=== PATIENT | male | born 1950 | race Caucasian/White ===

== ENCOUNTER 2017-08-25 19:48 | Inpatient (IN) | payer MEDICARE ==
[~2017-08-25] VITALS: Ht 180.3 cm; Wt 105.7 kg
[~2017-08-25 19:48] MED LIST: ACTOS15 MG PO; ALT5 PO; ASA81EC PO; CARVEDILOL25 MG PO; CLONAZEPAM1 MG PO; DOXYCYCLINE HY100 MG PO; ENALAPRIL MALEA20 MG PO; FLAGYL500 MG PO; FLAX SEED OIL1000 MG PO; GLIPIZIDE10 MG PO; INSU100V3 SQ; LEVP SQ; LIPITOR20 MG PO; LISINOPRIL10 MG PO; LOPRESSOR25 MG PO; METFORMIN HCL1000 MG PO; NIFEDIPINE ER30 M1 PO; ONGLYZA5 MG PO; OXCARBAZEPINE150 MG PO; PREDNISONE20 MG PO; PROTONIX40 MG/ML PO; SODIUM BICARBO650 MG PO; TERAZOSIN HCL1 MG PO; VIBRAMYCIN100 MG PO; VITAMIN B-121000 MCG PO; VITAMIN D-32000 UNIT PO; VYTORIN 10-201 EACH PO
[2017-08-25] MEDS ORDERED: ALBUTEROL/IPRATROPIUM 3 ML NEB NEB ONE (20:45)
--- NOTE | 2017-08-25 21:00 | Diagnostic Imaging Report ---
EXAMINATION: CHEST 2 VIEWS 08/25/2017 8:10 PM COMPARISON: None INDICATION: Shortness of breath DISCUSSION: LINES: None. LUNGS: The lung volumes are low. There are diffuse perihilar opacities and basilar subsegmental atelectasis. PLEURA: No pleural effusion or pneumothorax. HEART AND MEDIASTINUM: The cardiomediastinal silhouette is enlarged. BONES AND SOFT TISSUES: No acute osseous lesion. The soft tissues are normal. IMPRESSION: Cardiomegaly with perihilar opacities, suspicious for interstitial pulmonary edema. Low lung volumes with basilar atelectasis. Prakash Davis MD Signed by: Dr. Prakash Davis M.D. on 08/25/2017 8:56 PM
[2017-08-25 21:04] LABS: BASOPHILS % 0.3 % (0.0-1.0); EOSINOPHILS # (AUTO) 0.1 (0.0-0.4); EOSINOPHILS % 1.8 % (0.0-6.0); HEMATOCRIT 27.8 % (38.2-49.6); HEMOGLOBIN 9.1 g/dL (14.0-18.0); LYMPHOCYTES # (AUTO) 0.8 (1.0-3.2); LYMPHOCYTES % 20.3 % (18.0-39.1); MEAN CORPUSCULAR HEMOGLOBIN 27.7 pg (28-32); MEAN CORPUSCULAR HGB CONC 32.7 g/dL (31-35); MEAN CORPUSCULAR VOLUME 84.8 fL (81-99); MONOCYTES # (AUTO) 0.4 (0.2-0.8); MONOCYTES % 10.3 % (4.4-11.3); NEUTROPHILS # (AUTO) 2.7 (2.1-6.9); NEUTROPHILS % 66.8 % (38.7-80.0); PLATELET COUNT 141 x10e3/uL (140-360); RED BLOOD COUNT 3.28 x10e6/uL (4.3-5.7); RED CELL DISTRIBUTION WIDTH 15.7 % (11.7-14.4)
[2017-08-25 21:24] LABS: ALBUMIN 2.9 g/dL (3.5-5.0); ALBUMIN/GLOBULIN RATIO 0.7 (0.8-2.0); ANION GAP 19.3 mmol/L (8-16); CREATININE, SERUM 6.37 mg/dL (0.72-1.25); POTASSIUM 4.3 mmol/L (3.5-5.1)
[2017-08-25 21:26] LABS: CALCIUM 5.8 mg/dL (8.4-10.2)
[2017-08-25 21:35] LABS: CREATINE KINASE MB 5.2 ng/mL (0.00-5.00)
[2017-08-25] MEDS ORDERED: CALCIUM GLUCONATE 10% INJ 13.95 MEQ in SODIUM CHLORIDE 0.9% 100 ML 100 ML IV ONE (22:30)
[2017-08-25] MEDS ORDERED: CALCIUM GLUCONATE 10% INJ 0.465 MEQ/ML VIAL ONE ×2 (22:41→22:45)
[2017-08-25] MEDS ORDERED: SODIUM CHLORIDE 0.9% 50ML 50 ML ONE (22:42)
[2017-08-25] MEDS ORDERED: FUROSEMIDE INJ 10 MG/ML 10 ML VIAL IV ONE (22:45)
[2017-08-25] MEDS ORDERED: FUROSEMIDE INJ 10 MG/ML 2 ML VIAL ONE (23:01)
[2017-08-25] MEDS ORDERED: FUROSEMIDE INJ 10 MG/ML 4 ML VIAL ONE (23:01)
[2017-08-26] MEDS ORDERED: DEXTROSE 50% SYRINGE 50 ML IV PRN
[2017-08-26] MEDS ORDERED: ASPIRIN 81 MG CHEW TAB PO ONE
[2017-08-26 04:57] LABS: BASOPHILS % 0.2 % (0.0-1.0); EOSINOPHILS # (AUTO) 0.1 (0.0-0.4); HEMATOCRIT 28.8 % (38.2-49.6); HEMOGLOBIN 9.3 g/dL (14.0-18.0); LYMPHOCYTES % 18.8 % (18.0-39.1); MEAN CORPUSCULAR HEMOGLOBIN 27.6 pg (28-32); MEAN CORPUSCULAR HGB CONC 32.3 g/dL (31-35); MEAN CORPUSCULAR VOLUME 85.5 fL (81-99); MONOCYTES # (AUTO) 0.6 (0.2-0.8); MONOCYTES % 12.7 % (4.4-11.3); NEUTROPHILS # (AUTO) 3.4 (2.1-6.9); NEUTROPHILS % 66.7 % (38.7-80.0); PLATELET COUNT 160 x10e3/uL (140-360); RED BLOOD COUNT 3.37 x10e6/uL (4.3-5.7); RED CELL DISTRIBUTION WIDTH 15.8 % (11.7-14.4)
[2017-08-26 05:16] LABS: ALBUMIN 2.9 g/dL (3.5-5.0); ALBUMIN/GLOBULIN RATIO 0.7 (0.8-2.0); ANION GAP 19.3 mmol/L (8-16); CREATININE, SERUM 6.46 mg/dL (0.72-1.25); POTASSIUM 4.3 mmol/L (3.5-5.1)
[2017-08-26 05:18] LABS: CALCIUM 6.3 mg/dL (8.4-10.2)
[2017-08-26 05:22] LABS: CREATINE KINASE MB 5.1 ng/mL (0.00-5.00)
[2017-08-26] MEDS: INSULIN REGULAR, HUMAN 100 UNIT/1 ML 3ML VIAL SQ SCH ×4 (07:12→22:07)
[2017-08-26] MEDS ORDERED: LEVEMIR100 UNIT/1 SC (07:39)
[2017-08-26] MEDS ORDERED: HUMALOG100 UNIT/1 (07:39)
[2017-08-26] MEDS ORDERED: B-125000 MCG PO (07:39)
[2017-08-26] MEDS ORDERED: FLAXSEED OIL1000 MG PO (07:39)
[2017-08-26] MEDS ORDERED: ASPIR 8181 MG PO (07:39)
[2017-08-26] MEDS ORDERED: FUROSEMIDE INJ 10 MG/ML 4 ML VIAL IV SCH (09:00)
[2017-08-26] MEDS ORDERED: OYST-CAL-D 500MG TABLET PO SCH (09:00)
[2017-08-26] MEDS: ALBUTEROL/IPRATROPIUM 3 ML NEB NEB SCH ×2 (11:00→20:10)
[2017-08-26] MEDS ORDERED: SODIUM BICARBONATE 650 MG TAB PO NR (12:00)
[2017-08-26] MEDS ORDERED: OYST-CAL-D 500MG TABLET PO NR (12:00)
[2017-08-26] MEDS ORDERED: ONDANSETRON HCL INJ 2 MG/ML VIAL IV PRN (12:45)
[2017-08-26] MEDS ORDERED: HYDRALAZINE HCL 20 MG/ML VIAL IV PRN (12:45)
--- NOTE | 2017-08-26 13:20 | History and Physical ---
PRIMARY CARE PHYSICIAN: Dr. Gilberto Negron. CHIEF COMPLAINT: Shortness of breath. HISTORY OF PRESENT ILLNESS: Mr. Che is a 67-year-old male who presented with worsening shortness of breath going on for 3 weeks. Patient reports that the symptoms are progressively getting worse. He has developed renal failure and follows up with Dr. Pimentel and was told that he may need dialysis. However, he is not on hemodialysis. He denies any chest pain, nausea, vomiting. His chest x-ray in the emergency room showed cardiomegaly with some increased interstitial congestion. He was given IV Lasix in the emergency room, and his symptoms have improved. He still makes urine. 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 He denies any chest pain, nausea, vomiting. He is a lifelong nonsmoker. REVIEW OF SYSTEMS GENERAL: Denies any fever or chills. HEAD: Denies any head trauma or head injury. ENT: Denies any earache, nosebleed, throat pain. CVS: Denies any chest pain. RESPIRATORY: Shortness of breath. GI: Denies any nausea or vomiting. REMAINDER: The rest of the review of systems are negative except as in the HPI. PAST MEDICAL HISTORY 1. Chronic kidney disease. 2. Hypertension. 3. Hyperlipidemia. FAMILY AND SOCIAL HISTORY: He is a lifelong nonsmoker. 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 Lives with his brother. He has children who are grown. Denies any family history of heart disease. PHYSICAL EXAMINATION VITAL SIGNS: Temperature 98.1, pulse of 80, blood pressure 169/93, respiratory rate of 18, O2 sat 100% on 2 liters. SKIN: Warm and dry. GENERAL APPEARANCE: Morbidly obese male. He is awake and alert, in mild respiratory distress. HEENT: Head atraumatic, normocephalic. Pupils are reactive. NECK: Supple. No JVD. CHEST: Crackles in the bases but otherwise clear. No wheezing. HEART: S1/S2 audible. ABDOMEN: Soft, nontender, nondistended. EXTREMITIES: Bilateral pedal edema and rash on the lower extremities. NEUROLOGICALLY: Awake and alert. LABS: Sodium 139, potassium 4.3, chloride 105, BUN 77, creatinine 6.46, glucose 54, calcium 6.3. BNP 1048.7. Alk phos 205. CK 591, CK-MB 5.10. INR is 0.95. Chest x-ray: Increased congestion. ASSESSMENT: Jorge Luis Che is a 67-year-old male, obese, presented with worsening shortness of breath, chronic kidney disease with worsening creatinine and fluid overload. CURRENT PROBLEMS 1. Fluid overload likely due to worsening chronic kidney disease. 2. Obesity. 3. High likelihood of having obstructive sleep apnea. 4. History of worked as gutter hanger. Patient reported that he has been evaluated for asbestos and has been told that he does not have any asbestos-related disease. However, I will do a CT of the chest without contrast to further evaluate that. 5. Cardiology consult. 6. Nephrology consult. Job#: [id number] EV
[2017-08-26 14:07] LABS: CREATINE KINASE MB 4.6 ng/mL (0.00-5.00)
[2017-08-26] MEDS ORDERED: LEVOFLOXACIN 500MG/D5W 100ML 100 ML IV ONE (14:30)
[2017-08-26] MEDS ORDERED: CALCIUM GLUCONATE 10% INJ 4.65 MEQ in SODIUM CHLORIDE 0.9% 50ML 50 ML IV ONE (14:30)
--- NOTE | 2017-08-26 14:52 | Consultation ---
DATE OF CONSULTATION: CARDIOLOGY CONSULTATION ATTENDING PHYSICIAN: Bertrand Sheikh MD CLINICAL HISTORY: This is a 67-year-old white man, seen in the emergency room at [facility] because of possible congestive heart failure with chest x-ray showing cardiomegaly and perihilar opacity with low lung volume. This patient has history of rheumatic fever and syncope. Previous workup included a transesophageal echocardiogram, which failed to show significant mitral stenosis. There is no documented history of cardiac arrhythmias. He has had no further syncope. He presents to the hospital this time with 3 weeks of shortness of breath, was initially thought to have flu, but is considering the diagnosis of pneumonia now. He denies any aspiration. There is no previous history of congestive heart failure. Otherwise, previous ejection fraction was reported to be normal. Previous carotid Doppler apparently was negative, although report is not in the chart. 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 He reportedly has industrial exposure, but there is no documented history of asbestosis. PAST MEDICAL HISTORY: Remarkable for diabetes, chronic kidney disease stage 5, but apparently the patient is still not on dialysis, has hypocalcemia with serum calcium in the range of 5 to 6, cerebral aneurysm diagnosed in 2000, briefly treated with Dilantin, but currently stopped. There is unclear history of surgical management and unclear history of stroke. FAMILY HISTORY: Remarkable for diabetes and hypertension. ALLERGIES: PENICILLIN. PERSONAL AND SOCIAL HISTORY: He lives here in [place] on [facility], has 2 children. Denies history of smoking or drinking. MEDICATIONS AT HOME 1. Aspirin 81 mg per day. 2. Atorvastatin 20 mg per day. 3. Vibramycin. 4. Lisinopril 10 mg per day. 5. Flagyl 250 mg b.i.d. 6. Nifedipine 30 mg p.o. q.12 hours. 7. Oxcarbazepine. 8. Protonix. 9. Prednisone 20 mg q.d. 10. Sodium bicarbonate. 11. Terazosin 1 mg p.o. q.d. REVIEW OF SYSTEMS: Noncontributory. PHYSICAL EXAMINATION GENERAL: He appears to be short of breath with oxygen. He is obese. VITAL SIGNS: Temperature 98.3, pulse is 80, respirations 18, blood pressure 160/90, oximetry is 100%. CARDIAC: Jugular veins were not distended. S1, S2 were distant. LUNGS: Expiratory wheezes. ABDOMEN: Soft. Bowel sounds are present. EXTREMITIES: No cyanosis, clubbing, or edema. LABORATORY STUDIES: The white count is 4000, hemoglobin 9.1, platelet count is 141,000. Previous chemistry showed iron deficiency. CK is 606, CK-MB is 5.2, alkaline phosphatase 205, troponin I was normal. BNP is 1048. Total protein 6.8, albumin 2.9, calcium 5.8. IMPRESSION 1. 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 2. Rule out cardiac etiology of pulmonary congestion with chest x-ray showing cardiomegaly and central congestion; however, previous echocardiogram including transesophageal echocardiogram was negative. A repeat echocardiogram will be reviewed. 3. End-stage renal disease, not on dialysis, but needing dialysis. BUN 77 and creatinine 6.4. 4. Diabetes. 5. Hypertension. 6. Hyperlipidemia. 7. History of cerebral aneurysm, status post surgery and was previously on Dilantin. 8. History of cerebrovascular accident. 9. History of near syncope. 10. Anemia, probably iron deficient. Hemoglobin 9.3. RECOMMENDATION: Dialysis to remove volume. Diuretics trial if the patient can tolerate. Correct metabolic abnormalities including acidosis. Review echocardiogram. Thank you very much. Job#: [id number] PETRONA cc:MD Gilberto العلي MD
[2017-08-26] MEDS ORDERED: LEVOFLOXACIN 500MG/D5W 100ML 100 ML IV SCH (15:00)
[2017-08-26] MEDS: CALCITRIOL 0.25 MCG CAP PO SCH (15:12)
[2017-08-26] MEDS: SODIUM BICARBONATE 650 MG TAB PO SCH ×2 (15:12→20:47)
[2017-08-26] MEDS: CALCIUM CARBONATE 500 MG CHEWABLE TABS PO SCH ×2 (15:12→20:47)
[2017-08-26] MEDS ORDERED: CALCIUM GLUCONATE 10% INJ 4.65 MEQ in SODIUM CHLORIDE 0.9% 50ML 100 ML IV ONE (15:15)
--- NOTE | 2017-08-26 15:49 | Consultation ---
DATE OF CONSULTATION: August 26, 2017 Patient was seen in the emergency room. Mr. Che is known to our nephrology service. He follows with Dr. Pimentel. A 67-year-old gentleman with underlying history of chronic kidney disease, stage 3. Also, history of type 2 diabetes, history of hypertension, history cerebral aneurysm back in 2000, status post surgery, underlying hyperlipidemia, multiple comorbidities who has been admitted with cough and congestion. Chest x-ray shows infiltrates bilaterally, left more than right. This is by my exam. Laboratory test shows white count of 4, hemoglobin 9.1. Potassium 4.3, bicarbonate 19, creatinine 6.46. Calcium 6.3. CK of 591. CURRENT MEDICATIONS: Patient is on: 1. Sodium bicarbonate 650 mg p.o. b.i.d. which I have adjusted to 1950 mg p.o. t.i.d.. 2. He is also on Trileptal 150 mg p.o. b.i.d. 3. Nifedipine 30 mg p.o. q.12 h. 4. Lisinopril 20 mg p.o. b.i.d., which I have stopped. 5. He is furosemide 20 mg and received 80 mg at night and 20 mg. 6. Currently, on Lasix IV 80 mg IV 3 times a day, which I have stopped as well. 7. He is on aspirin to chew 81 mg. 8. Atorvastatin 20 mg daily. 9. Calcium carbonate 500 mg p.o. t.i.d. 10. Albuterol nebulizer. Has not received any antibiotics thus far. ALLERGIES: HE IS ALLERGIC TO PENICILLIN AND CODEINE. SOCIAL HISTORY: Does not smoke or drink. FAMILY HISTORY: Significant for hypertension. PHYSICAL EXAMINATION GENERAL: Awake, alert and lying supine. No apparent distress. VITALS: Blood pressure 160/92, pulse rate 80, afebrile. HEENT: Cornea clear. Oral mucosa is dry. LUNGS: Has breath sounds. Scattered rales, right more than left. HEART: S1 and S2 audible. ABDOMEN: Otherwise, soft, distended and nontender. LOWER EXTREMITIES: No edema. IMPRESSION 1. Most likely pneumonia. 2. Evidence of cardiomegaly. 3. Possible pulmonary edema, but no respiratory decompensation. 4. Significant metabolic acidosis. 5. [id number] kidney failure. I will obtain clinic records. In the meantime, will start IV bicarbonate and titrate p.o. sodium bicarbonate and discontinue NICOLE inhibitors. Have a Stallings catheter placed. Recommend strict intake and output. Currently, no acute indications for dialysis. Will likely need dialysis at some point in time. Will obtain a stat BNP level today. Start empiric antibiotic in the form of Levaquin. His albumin is 2.9. Calcium is very low. I will give him an amp of calcium gluconate and start him on Rocaltrol , 25, hydroxy, vitamin D, as well as Tums. Discussed with the RN. Patient is still in the emergency room. Job#: [id number] CHARLIE
--- NOTE | 2017-08-26 16:22 | Diagnostic Imaging Report ---
PROCEDURE:CT CHEST WITHOUT CONTRAST COMPARISON:Chest x-ray 08/25/17, CT abdomen 12/10/16 INDICATIONS:SOB TECHNIQUE: Axial CT images of the chest were obtained without intravenous contrast. Coronal and sagittal reformations were made available for review. RADIATION DOSE: Total DLP: 629.2 mGy*cm Estimated effective dose: (DLP x 0.014 x size factor) mSv FINDINGS: Lungs: Eventration of the right diaphragm is stable. There is diffuse air trapping. Patchy airspace opacities are present throughout the lungs, particularly the lower lung zones. A groundglass density in the left upper lobe measures 13 mm suggestive of a focus of inflammation or edema. 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 No interstitial thickening is appreciated. The pulmonary arteries and veins are enlarged. Pleura:No pleural effusion or pneumothorax. Heart \T\ Mediastinum:The heart is enlarged with diffuse coronary calcifications. The main pulmonary artery measures 3.8 cm in diameter. The ascending aorta measures 3.3 cm in diameter. There is a small pericardial effusion/pericardial thickening. The esophagus is collapsed. Lymph nodes: No enlarged axillary, supraclavicular, mediastinal, or hilar lymph nodes. Thyroid/basal neck: Unremarkable. Upper abdomen:Visualized portions of the upper abdomen demonstrate a calcified granuloma in the spleen and pancreas. No soft tissue mass or fluid. Musculoskeletal:There are degenerative changes of the spine. Flowing anterior osteophytes are suggestive of DISH. No compression deformities or lytic/blastic lesions. A soft tissue mass superior to the left nipple measures 1.6 x 2.0 cm and could be a sebaceous cyst. CONCLUSION: 1. Severe tracheobronchomalacia. 2. Diffuse airspace opacities suggestive of edema or pneumonia. This is superimposed on diffuse pulmonary hyperinflation consistent with COPD. 3. Cardiomegaly and enlarged pulmonary arteries suggestive of pulmonary artery hypertension. 4. Stable eventration of the right diaphragm. Dictated by: Rubén Castillo M.D. on 08/26/2017 at 16:29 Electronically approved by: Rubén Castillo M.D. on 08/26/2017 at 16:29
[2017-08-26] MEDS ORDERED: SODIUM BICARBONATE 650 MG TAB PO SCH (17:00)
[2017-08-26] MEDS ORDERED: LISINOPRIL 10 MG TAB PO SCH (17:00)
[2017-08-26] MEDS: SODIUM BICARBONATE 8.4% SYRING 150 ML in DEXTROSE 5% 1,000 ML IV SCH (17:06)
[2017-08-26] MEDS: TERAZOSIN HCL 1 MG CAP PO SCH (17:06)
[2017-08-26 20:00] VITALS: BP 167/70
[2017-08-26] MEDS: OYST-CAL-D 500MG TABLET PO SCH (20:46)
[2017-08-26] MEDS: ATORVASTATIN 20 MG TAB PO SCH (20:46)
[2017-08-26] MEDS: FUROSEMIDE INJ 10 MG/ML 4 ML VIAL IV SCH (20:46)
[2017-08-26] MEDS: NIFEDIPINE CR 30 MG TAB PO SCH (20:47)
[2017-08-26] MEDS: OXCARBAZEPINE 300 MG TAB PO SCH (21:09)
[2017-08-27] VITALS: BP 146/84
[2017-08-27 07:06] LABS: ALBUMIN 2.7 g/dL (3.5-5.0); ALBUMIN/GLOBULIN RATIO 0.8 (0.8-2.0); ANION GAP 16.6 mmol/L (8-16); CREATININE, SERUM 6.29 mg/dL (0.72-1.25); POTASSIUM 3.6 mmol/L (3.5-5.1)
[2017-08-27 07:20] LABS: CALCIUM 6.5 mg/dL (8.4-10.2)
[2017-08-27] MEDS: ALBUTEROL/IPRATROPIUM 3 ML NEB NEB SCH ×3 (07:20→21:55)
[2017-08-27 08:00] VITALS: BP 127/63
[2017-08-27] MEDS ORDERED: ATORVASTATIN 20 MG TAB PO SCH (09:00)
[2017-08-27] MEDS: OYST-CAL-D 500MG TABLET PO SCH ×3 (10:15→21:13)
[2017-08-27] MEDS: SODIUM BICARBONATE 650 MG TAB PO SCH ×3 (10:15→21:13)
[2017-08-27] MEDS: CALCIUM CARBONATE 500 MG CHEWABLE TABS PO SCH ×3 (10:15→21:13)
[2017-08-27] MEDS: OXCARBAZEPINE 300 MG TAB PO SCH ×2 (10:15→18:10)
[2017-08-27] MEDS: CALCITRIOL 0.25 MCG CAP PO SCH (10:15)
[2017-08-27] MEDS: TERAZOSIN HCL 1 MG CAP PO SCH ×2 (10:15→18:10)
[2017-08-27] MEDS: ASPIRIN 81 MG CHEW TAB PO SCH (10:15)
[2017-08-27] MEDS: FUROSEMIDE INJ 10 MG/ML 4 ML VIAL IV SCH ×2 (10:16→21:12)
[2017-08-27] MEDS: NIFEDIPINE CR 30 MG TAB PO SCH ×2 (10:16→21:00)
[2017-08-27] MEDS: INSULIN REGULAR, HUMAN 100 UNIT/1 ML 3ML VIAL SQ SCH ×4 (10:18→21:14)
[2017-08-27] MEDS: SODIUM BICARBONATE 8.4% SYRING 150 ML in DEXTROSE 5% 1,000 ML IV SCH (11:00)
[2017-08-27 12:00] VITALS: BP 159/73
[2017-08-27 16:00] VITALS: BP 120/60
[2017-08-27 20:00] VITALS: BP 127/59
[2017-08-27] MEDS: METHYLPREDNISOLONE SOD SUCC 40 MG/ML VIAL IV SCH (21:12)
[2017-08-27] MEDS: ATORVASTATIN 20 MG TAB PO SCH (21:13)
[2017-08-27] MEDS ORDERED: AZTREONAM 1 GM VIAL ONE (21:36)
[2017-08-27] MEDS: WATER STERILE IV SCH (22:30)
[2017-08-27] MEDS: AZTREONAM IV SCH (22:30)
[2017-08-28] VITALS: BP 152/69
[2017-08-28] MEDS: ALBUTEROL/IPRATROPIUM 3 ML NEB NEB SCH ×4 (03:00→19:50)
[2017-08-28] MEDS ORDERED: AZTREONAM 1 GM VIAL ONE (03:48)
[2017-08-28 04:00] VITALS: BP 166/76
[2017-08-28] MEDS: AZTREONAM IV SCH ×3 (05:12→21:49)
[2017-08-28] MEDS: WATER STERILE IV SCH ×3 (05:12→21:49)
[2017-08-28 08:00] VITALS: BP 139/85
[2017-08-28 08:33] LABS: ALBUMIN 2.8 g/dL (3.5-5.0); ALBUMIN/GLOBULIN RATIO 0.7 (0.8-2.0); ANION GAP 19.2 mmol/L (8-16); CREATININE, SERUM 5.99 mg/dL (0.72-1.25); POTASSIUM 4.2 mmol/L (3.5-5.1)
[2017-08-28 08:47] LABS: CALCIUM 6.8 mg/dL (8.4-10.2)
[2017-08-28] MEDS: ASPIRIN 81 MG CHEW TAB PO SCH (09:02)
[2017-08-28] MEDS: METHYLPREDNISOLONE SOD SUCC 40 MG/ML VIAL IV SCH (09:02)
[2017-08-28] MEDS: FUROSEMIDE INJ 10 MG/ML 4 ML VIAL IV SCH ×2 (09:02→21:48)
[2017-08-28] MEDS: NIFEDIPINE CR 30 MG TAB PO SCH ×2 (09:03→21:00)
[2017-08-28] MEDS: CALCIUM CARBONATE 500 MG CHEWABLE TABS PO SCH ×3 (09:03→21:49)
[2017-08-28] MEDS: TERAZOSIN HCL 1 MG CAP PO SCH ×2 (09:03→17:09)
[2017-08-28] MEDS: CALCITRIOL 0.25 MCG CAP PO SCH (09:03)
[2017-08-28] MEDS: OYST-CAL-D 500MG TABLET PO SCH ×3 (09:03→21:48)
[2017-08-28] MEDS: OXCARBAZEPINE 300 MG TAB PO SCH ×2 (09:03→17:09)
[2017-08-28] MEDS: SODIUM BICARBONATE 650 MG TAB PO SCH ×3 (09:03→21:49)
[2017-08-28] MEDS: INSULIN REGULAR, HUMAN 100 UNIT/1 ML 3ML VIAL SQ SCH ×2 (09:06→12:56)
[2017-08-28 12:00] VITALS: BP 155/85
[2017-08-28 16:00] VITALS: BP 142/74
[2017-08-28 16:43] LABS: FREE T4 (FREE THYROXINE) 0.78 ng/dL (0.8-1.8); THYROID STIMULATING HORMONE 1.22 uIU/mL (0.350-4.940)
[2017-08-28] MEDS: INSULIN LISPRO 100 UNIT/1 ML 3ML VIAL SQ SCH ×3 (17:09→21:57)
[2017-08-28 20:00] VITALS: BP 114/48
[2017-08-28 21:44] LABS: CREATININE,URINE RANDOM 36.7 mg/dL (63-166)
[2017-08-28] MEDS: ATORVASTATIN 20 MG TAB PO SCH (21:48)
[2017-08-28] MEDS: INSULIN DETEMIR 100 UNIT/ML PEN SQ SCH (21:57)
[2017-08-29] VITALS (7 sets, daily range): BP systolic 118–177; BP diastolic 62–95
[2017-08-29] MEDS: ALBUTEROL/IPRATROPIUM 3 ML NEB NEB SCH ×4 (01:10→19:40)
[2017-08-29] MEDS: AZTREONAM IV SCH (05:52)
[2017-08-29] MEDS: WATER STERILE IV SCH (05:52)
[2017-08-29] MEDS: INSULIN LISPRO 100 UNIT/1 ML 3ML VIAL SQ SCH ×7 (07:30→21:00)
[2017-08-29 07:36] LABS: ALBUMIN 2.7 g/dL (3.5-5.0); ALBUMIN/GLOBULIN RATIO 0.8 (0.8-2.0); ANION GAP 18.8 mmol/L (8-16); CALCIUM 7.2 mg/dL (8.4-10.2); CREATININE, SERUM 5.81 mg/dL (0.72-1.25); POTASSIUM 3.8 mmol/L (3.5-5.1)
[2017-08-29 07:59] LABS: INR 1.01; PROTHROMBIN TIME 13.8 seconds (11.9-14.5)
[2017-08-29 08:00] LABS: PARTIAL THROMBOPLASTIN TIME 27.8 seconds (23.8-35.5)
[2017-08-29] MEDS: OYST-CAL-D 500MG TABLET PO SCH ×3 (09:00→21:00)
[2017-08-29] MEDS: TERAZOSIN HCL 1 MG CAP PO SCH ×2 (09:00→16:27)
[2017-08-29] MEDS: FUROSEMIDE INJ 10 MG/ML 4 ML VIAL IV SCH ×2 (09:00→21:00)
[2017-08-29] MEDS: CALCITRIOL 0.25 MCG CAP PO SCH (09:00)
[2017-08-29] MEDS ORDERED: METHYLPREDNISOLONE SOD SUCC 40 MG/ML VIAL IV SCH (09:00)
[2017-08-29] MEDS: NIFEDIPINE CR 30 MG TAB PO SCH ×2 (09:00→20:37)
[2017-08-29] MEDS: ASPIRIN 81 MG CHEW TAB PO SCH (09:00)
[2017-08-29] MEDS: OXCARBAZEPINE 300 MG TAB PO SCH ×2 (09:00→16:27)
[2017-08-29] MEDS: SODIUM BICARBONATE 650 MG TAB PO SCH ×3 (10:35→21:00)
[2017-08-29] MEDS: CALCIUM CARBONATE 500 MG CHEWABLE TABS PO SCH ×3 (10:35→21:00)
--- NOTE | 2017-08-29 10:35 | Cardiology Report ---
DATE OF STUDY: ECHOCARDIOGRAM AGE: [age] years old male. ATTENDING PHYSICIAN: Bertrand Sheikh MD M-MODE: Dilated left atrium. Left ventricular hypertrophy. Normal contractility. Sclerosis of mitral valve annulus. Normal aortic valve. No pericardial effusion. SECTOR SCAN: Dilated left atrium. Left ventricular hypertrophy. Normal contractility. Ejection fraction is approximately 50%. Mitral annulus sclerotic. Aortic and tricuspid valves appear to be normal. There is no pericardial effusion. CAROTID DOPPLER STUDY WITH COLOR: 1+ mitral and tricuspid regurgitation. Pulmonary arterial systolic pressure estimated at 28 mmHg. CONCLUSION 1. Mild mitral regurgitation with dilated left atrium with sclerosis of the mitral valve annulus. 2. Mild tricuspid regurgitation without significant pulmonary hypertension. 3. Left ventricular hypertrophy with ejection fraction of approximately 50%. Job#: [id number] PAT cc:Dr. Bertrand Sheikh MD
--- NOTE | 2017-08-29 10:51 | Consultation ---
DATE OF CONSULTATION: August 28, 2017 ENDOCRINE CONSULTATION Thank you very much for referring this patient. This is a 67-year-old white male gentleman who was referred to me for evaluation of uncontrolled diabetes mellitus. Patient reportedly is a known diabetic for almost 4 to 5 years and takes a combination of the Levemir insulin about 26 to 30 twice a day and Humalog about 10 to 15 with each meal depending upon blood sugars. Patient has chronic renal failure, which is end stage. Patient also came to the hospital with history of shortness of breath. He has history of coronary artery disease, congestive cardiac failure, and fluid overload. While the patient is in the hospital, he has been on steroids and his blood sugars are significantly elevated at 363 to 390 range. Patient on several other medications at home including Lasix, Lipitor, and hydralazine for high blood pressure. PHYSICAL EXAMINATION: GENERAL: Today, the patient is alert, awake, little bit apprehensive. He is moderately overweight. He has bilateral pedal edema. VITAL SIGNS: Heart rate is around 78. Blood pressure is 139/86 mmHg. HEENT: Essentially unremarkable. Thyroid is palpable. Clinically, he is near euthyroid. CHEST: He has bilateral vascular breathing. He has bilateral bronchospasm. CARDIAC: Both 1st and 2nd heart sounds. There is no 3rd or 4th heart sound. Ejection sound is grade 2/6. CLINICAL IMPRESSION: 1. Diabetes mellitus type 2, controlled with complication precipitated by steroids. 2. Chronic respiratory failure. 3. Fluid overload. 4. Congestive cardiac failure. 5. Chronic renal failure, end stage. PLAN: The plan at this time is to do a hemoglobin A1c, thyroid function test, monitor his blood sugars closely, and put him on a combination of the Levemir and the Humalog insulin. Thanks again for referring this patient. I will be following this patient with you. Job#: [id number] VAS
[2017-08-29] MEDS: AZTREONAM (AZACTAM) 0.5 GM in SODIUM CHLORIDE 0.9% 50ML 50 ML IV SCH ×2 (14:41→21:53)
[2017-08-29] MEDS: ACETAMINOPHEN 325 MG TAB PO PRN (16:27)
[2017-08-29] MEDS ORDERED: SODIUM CHLORIDE 0.9% 50ML 50 ML ONE (20:45)
[2017-08-29] MEDS: INSULIN DETEMIR 100 UNIT/ML PEN SQ SCH (21:00)
[2017-08-29] MEDS: ATORVASTATIN 20 MG TAB PO SCH (21:00)
[2017-08-30] VITALS (8 sets, daily range): BP systolic 133–160; BP diastolic 69–94
[2017-08-30] MEDS: ALBUTEROL/IPRATROPIUM 3 ML NEB NEB SCH ×4 (01:20→19:20)
[2017-08-30] MEDS: ACETAMINOPHEN 325 MG TAB PO PRN ×2 (03:02→09:11)
[2017-08-30] MEDS ORDERED: SODIUM CHLORIDE 0.9% 50ML 0 ML ONE (04:59)
[2017-08-30] MEDS: AZTREONAM (AZACTAM) 0.5 GM in SODIUM CHLORIDE 0.9% 50ML 50 ML IV SCH ×3 (06:10→21:30)
[2017-08-30 06:40] LABS: ALBUMIN 2.6 g/dL (3.5-5.0); ALBUMIN/GLOBULIN RATIO 0.7 (0.8-2.0); ANION GAP 15.4 mmol/L (8-16); CALCIUM 7.3 mg/dL (8.4-10.2); CREATININE, SERUM 5.68 mg/dL (0.72-1.25); POTASSIUM 4.4 mmol/L (3.5-5.1)
[2017-08-30] MEDS: INSULIN LISPRO 100 UNIT/1 ML 3ML VIAL SQ SCH ×7 (07:30→21:30)
[2017-08-30] MEDS: TERAZOSIN HCL 1 MG CAP PO SCH ×3 (08:50→21:29)
[2017-08-30] MEDS: NIFEDIPINE CR 30 MG TAB PO SCH ×2 (08:50→21:30)
[2017-08-30] MEDS: ASPIRIN 81 MG CHEW TAB PO SCH (08:50)
[2017-08-30] MEDS: SODIUM BICARBONATE 650 MG TAB PO SCH ×3 (08:50→21:29)
[2017-08-30] MEDS: CALCITRIOL 0.25 MCG CAP PO SCH (08:50)
[2017-08-30] MEDS: CALCIUM CARBONATE 500 MG CHEWABLE TABS PO SCH ×3 (08:50→21:30)
[2017-08-30] MEDS: OYST-CAL-D 500MG TABLET PO SCH ×3 (08:50→21:29)
[2017-08-30] MEDS: FUROSEMIDE INJ 10 MG/ML 4 ML VIAL IV SCH ×2 (08:50→21:29)
[2017-08-30] MEDS: OXCARBAZEPINE 300 MG TAB PO SCH ×2 (08:50→16:58)
[2017-08-30 08:51] LABS: CREATININE,URINE RANDOM 30.79 mg/dL (63-166); TOTAL PROTEIN, URINE 198.4 mg/dL (1-14)
[2017-08-30 08:52] LABS: TOTAL PROTEIN 24HR, URINE 7340.8 mg/24hr (50-100)
[2017-08-30] MEDS ORDERED: PREDNISONE 10 MG TAB PO SCH (09:00)
[2017-08-30] MEDS ORDERED: HEPARIN SOD (PORCINE) 1000 UNIT/ML 30ML ONE (12:24)
[2017-08-30] MEDS ORDERED: FENTANYL CITRATE/PF 100MCG/2 ML INJ ONE (12:25)
[2017-08-30] MEDS ORDERED: MIDAZOLAM HCL 2 MG/2 ML VIAL ONE (12:25)
[2017-08-30] MEDS ORDERED: SODIUM CHLORIDE 0.9% 500ML 1,000 ML ONE (12:26)
[2017-08-30] MEDS ORDERED: LIDOCAINE HCL 2% LOCAL 20 ML VIAL ONE (12:26)
--- NOTE | 2017-08-30 14:59 | Diagnostic Imaging Report ---
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 Messina Pre-operative diagnosis: ESRD Post-operative diagnosis: Yesterday Conscious Sedation: Versed 1 mg and Fentanyl 50 mcg. The patient's heart rate and pulse oximetry were continuously monitored by the interventional radiology nurse. Blood pressure was monitored at 5 minute intervals. Additional Medications: None Fluoroscopy time: 2.7 minutes Dose-area Product: 779.6 cGycm2. Contrast used: None Estimated blood loss: Less than 10 cc Blood products administered: None Specimens: None Implants: 16 Niuean, 19 cm tip-cuff tunneled hemodialysis catheter Condition at completion of procedure: Stable Disposition: Returned to floor unit DISCUSSION: Informed consent for the procedure was obtained from the patient after discussion of risks and benefits. The right neck and upper chest was prepped and draped in the standard sterile fashion after the patient was placed in the supine position on the fluoroscopic table. Preliminary sonographic evaluation confirmed patency of the right internal jugular vein, evidenced by compressibility. 1% lidocaine was administered into the skin and subcutaneous tissues of the right lower neck for local anesthesia. Then, under continuous sonographic guidance, a 21-gauge micropuncture needle was advanced into the right internal jugular vein. A 0.018 inch wire was advanced centrally under fluoroscopic guidance. The needle was then removed and access was secured with a micropuncture sheath. Intravascular length to the upper right atrium was determined using the microwire, which was then removed along with the inner dilator of the micropuncture sheath. A 0.035 inch Amplatz Super Stiff wire was then advanced through the micropuncture sheath into the inferior vena cava under fluoroscopic guidance. Attention was then turned to the right upper chest. A suitable catheter exit site was determined, approximately 2 fingerbreadths inferior to the clavicle. The skin was marked. 1% lidocaine was used to anesthetize a subcutaneous tract extending from the planned catheter exit site to the venotomy at the right lower neck. A stab incision was made on the right upper chest. Subsequently, the catheter was tunneled from the exit site of the right upper chest to the venotomy at the right lower neck. The retention cuff of the catheter was advanced well into the subcutaneous tunnel. The micropuncture sheath was then removed over the wire and the tract was serially dilated. Finally, a 16.5-Niuean peel-away sheath was advanced over the wire under fluoroscopic guidance. The wire and inner dilator of the sheath were removed and the catheter was advanced through the peel-away sheath, which was then broken and removed. The catheter tip was positioned in the upper right atrium. Each catheter lumen showed good bidirectional flow. Each lumen was then packed with 2000 units of heparin. The catheter was secured at the exit site on the right upper chest with monofilament nylon suture. The venotomy at the right lower neck was closed with tissue adhesive. A sterile dressing was applied. The patient tolerated the procedure well without immediate complication. FINDINGS: Patent right internal jugular vein. IMPRESSION: Successful placement of a tunneled dual-lumen hemodialysis catheter (16-Niuean, 19-cm tip-cuff length) by a right internal jugular approach. Signed by: Dr. Santiago Messina M.D. on 08/30/2017 2:55 PM
[2017-08-30] MEDS ORDERED: SODIUM CHLORIDE 0.9% 1000ML 2,000 ML ONE (16:04)
[2017-08-30] MEDS ORDERED: SODIUM CHLORIDE 0.9% 1000ML 1,000 ML IV PRN (16:45)
[2017-08-30] MEDS ORDERED: MANNITOL 25% 12.5GM/50 ML VIAL IV PRN (16:45)
[2017-08-30] MEDS ORDERED: HEPARIN SOD (PORCINE) 1000 UNIT/ML SDV IV PRN (16:45)
[2017-08-30] MEDS: INSULIN DETEMIR 100 UNIT/ML PEN SQ SCH (21:00)
[2017-08-30] MEDS ORDERED: SODIUM CHLORIDE 0.9% 50ML 50 ML ONE (21:12)
[2017-08-30] MEDS: ATORVASTATIN 20 MG TAB PO SCH (21:29)
[2017-08-31] VITALS (7 sets, daily range): BP systolic 121–157; BP diastolic 59–91
[2017-08-31] MEDS: ALBUTEROL/IPRATROPIUM 3 ML NEB NEB SCH ×4 (01:18→20:15)
[2017-08-31] MEDS: AZTREONAM (AZACTAM) 0.5 GM in SODIUM CHLORIDE 0.9% 50ML 50 ML IV SCH ×2 (05:22→13:50)
[2017-08-31] MEDS: INSULIN LISPRO 100 UNIT/1 ML 3ML VIAL SQ SCH ×7 (07:30→21:00)
[2017-08-31] MEDS: CALCIUM CARBONATE 500 MG CHEWABLE TABS PO SCH ×3 (08:56→22:47)
[2017-08-31] MEDS: CALCITRIOL 0.25 MCG CAP PO SCH (08:56)
[2017-08-31] MEDS: PREDNISONE 10 MG TAB PO SCH (08:56)
[2017-08-31] MEDS: OYST-CAL-D 500MG TABLET PO SCH ×3 (08:56→22:46)
[2017-08-31] MEDS: ASPIRIN 81 MG CHEW TAB PO SCH (08:56)
[2017-08-31] MEDS: OXCARBAZEPINE 300 MG TAB PO SCH ×2 (08:56→16:06)
[2017-08-31] MEDS: SODIUM BICARBONATE 650 MG TAB PO SCH ×3 (08:56→22:47)
[2017-08-31] MEDS: FUROSEMIDE INJ 10 MG/ML 4 ML VIAL IV SCH ×2 (08:56→22:46)
[2017-08-31] MEDS: TERAZOSIN HCL 1 MG CAP PO SCH ×2 (09:00→15:39)
[2017-08-31] MEDS: NIFEDIPINE CR 30 MG TAB PO SCH ×2 (09:00→22:47)
[2017-08-31 11:20] LABS: BASOPHILS % 0.1 % (0.0-1.0); EOSINOPHILS # (AUTO) 0.1 (0.0-0.4); EOSINOPHILS % 1.7 % (0.0-6.0); HEMATOCRIT 27.9 % (38.2-49.6); LYMPHOCYTES # (AUTO) 1.2 (1.0-3.2); LYMPHOCYTES % 15.2 % (18.0-39.1); MEAN CORPUSCULAR HEMOGLOBIN 27.4 pg (28-32); MEAN CORPUSCULAR HGB CONC 32.3 g/dL (31-35); MEAN CORPUSCULAR VOLUME 85.1 fL (81-99); MONOCYTES # (AUTO) 1.1 (0.2-0.8); MONOCYTES % 13.5 % (4.4-11.3); NEUTROPHILS # (AUTO) 5.6 (2.1-6.9); NEUTROPHILS % 69.1 % (38.7-80.0); PLATELET COUNT 197 x10e3/uL (140-360); RED BLOOD COUNT 3.28 x10e6/uL (4.3-5.7); RED CELL DISTRIBUTION WIDTH 15.3 % (11.7-14.4)
[2017-08-31 11:21] LABS: CALCIUM 7.4 mg/dL (8.4-10.2); CREATININE, SERUM 4.78 mg/dL (0.72-1.25)
[2017-08-31] MEDS ORDERED: BENZONATATE 100 MG CAP PO PRN (14:45)
[2017-08-31] MEDS: DOXYCYCLINE HYCLATE TABLET 100 MG TAB PO SCH (16:06)
[2017-08-31] MEDS: INSULIN DETEMIR 100 UNIT/ML PEN SQ SCH (21:00)
[2017-08-31] MEDS: ATORVASTATIN 20 MG TAB PO SCH (22:46)
[2017-09-01] VITALS: BP 152/91
[2017-09-01] MEDS: ALBUTEROL/IPRATROPIUM 3 ML NEB NEB SCH ×4 (00:15→20:15)
[2017-09-01 02:49] VITALS: BP 152/91
[2017-09-01] MEDS: INSULIN LISPRO 100 UNIT/1 ML 3ML VIAL SQ SCH ×7 (07:30→21:00)
[2017-09-01 08:00] VITALS: BP 136/89
[2017-09-01] MEDS: DOXYCYCLINE HYCLATE TABLET 100 MG TAB PO SCH ×2 (09:00→17:01)
[2017-09-01] MEDS: FUROSEMIDE INJ 10 MG/ML 4 ML VIAL IV SCH ×2 (09:00→22:00)
[2017-09-01] MEDS: CALCITRIOL 0.25 MCG CAP PO SCH (09:00)
[2017-09-01] MEDS: CALCIUM CARBONATE 500 MG CHEWABLE TABS PO SCH ×3 (09:00→22:00)
[2017-09-01] MEDS: TERAZOSIN HCL 1 MG CAP PO SCH ×2 (09:00→17:01)
[2017-09-01] MEDS: SODIUM BICARBONATE 650 MG TAB PO SCH (09:00)
[2017-09-01] MEDS: ASPIRIN 81 MG CHEW TAB PO SCH (09:00)
[2017-09-01] MEDS: OXCARBAZEPINE 300 MG TAB PO SCH ×2 (09:00→17:01)
[2017-09-01] MEDS: OYST-CAL-D 500MG TABLET PO SCH ×3 (09:00→22:00)
[2017-09-01] MEDS: PREDNISONE 10 MG TAB PO SCH (09:00)
[2017-09-01] MEDS: NIFEDIPINE CR 30 MG TAB PO SCH ×2 (09:00→22:00)
[2017-09-01 12:00] VITALS: BP 138/79
--- NOTE | 2017-09-01 14:39 | Consultation ---
DATE OF CONSULTATION: September 01, 2017 CARDIOVASCULAR SURGERY CONSULT REQUESTING PHYSICIAN: Dr. Luisa Wu. REASON FOR CONSULTATION: Evaluation for AV fistula. HISTORY OF PRESENT ILLNESS: This is a 67-year-old gentleman who presented to the hospital with increased shortness of breath, lower extremity edema, and cough. He was found to have chronic renal failure and recently started on dialysis during this hospitalization. He has been followed by Dr. Pimentel in the outpatient setting for his chronic kidney disease. He has a history of type 2 diabetes for the past 8 to 10 years, history of hypertension, history of hyperlipidemia. He states he does not have any previous history of coronary artery disease or previous heart attack. According to the records, he had a previous history of rheumatic fever with no significant mitral stenosis noted on echocardiogram. Prior to this hospitalization, he felt his shortness of breath and congestion were associated with flu-like symptoms. However, he failed to improve and eventually came to the hospital. As stated, patient apparently knew of his renal insufficiency for the past few years and has been followed as an outpatient and had been stable prior to this admission. He currently has a right upper extremity temporary catheter for dialysis. No previous surgeries or previous injuries or IV drug use to the upper arms. He is left-handed. CV Surgery was consulted for evaluation for possible AV fistula. PAST MEDICAL HISTORY: Positive for diabetes, chronic renal insufficiency, a history of cerebral aneurysm in 2000, a history of hypertension, hyperlipidemia. FAMILY HISTORY: Positive for diabetes in his mother, hypertension in his father. SOCIAL HISTORY: He is retired. Denies any smoking or alcohol use. ALLERGIES: INCLUDE PENICILLIN. SURGICAL HISTORY: Unremarkable. REVIEW OF SYSTEMS GENERAL: Positive for some fatigue, no malaise. HEENT: No decreased vision, no decreased hearing. CARDIAC: Denies any chest pain, no palpitations. RESPIRATORY: Mild shortness of breath, improved since starting dialysis. Cough improved. GI: No constipation, diarrhea. : No hematuria, dysuria. ENDOCRINE: No polyuria, polydipsia. Positive for history of diabetes. INFECTIOUS: No fevers or sweating. MUSCULOSKELETAL: No joint pains or joint swelling. OTHER: All other review of systems are negative. PHYSICAL EXAMINATION GENERAL: Patient is alert, awake, in no acute distress. Moderately obese. Conversant. VITAL SIGNS: Blood pressure 136/89, respiration 19, pulse 96, temperature 97.3. Currently receiving hemodialysis via a right upper extremity temporary catheter. HEENT: Extraocular movements are full. Mucous membranes are moist. NECK: Supple, nontender. No JVD. CARDIAC: Normal S1/S2. No murmurs. CHEST: Clear to auscultation bilaterally. No crackles or wheeze. ABDOMEN: Soft, obese. No hepatosplenomegaly. No tenderness. MUSCULOSKELETAL: Appears full range of motion all joints. SKIN: No rashes or nonhealing ulcers. EXTREMITIES: No obvious scarring or other injuries noted to upper extremities. Lower extremities, 1+ edema bilaterally. BACK: No CVA tenderness. No muscle spasm. LAB WORK: Shows a white count of 8.09, hemoglobin 9, hematocrit 27, platelet count 197. Chemistry: Sodium 137, potassium 4, creatinine is 4.7, BUN is 66. IMAGING: Patient had a chest CT that showed some diffuse air-space opacities, possible edema versus pneumonia, with cardiomegaly noted. ASSESSMENT 1. End-stage renal disease, recently started on dialysis. 2. Diabetes. 3. Hypertension. PLAN: Explained to the patient the need for permanent dialysis access with AV fistula. Patient is apprehensive regarding his diagnosis. Explained to the patient risk associated with temporary catheter versus fistula creation. The patient has not had any vein mapping or imaging in the outpatient setting yet. Will get this completed and see the patient in followup for AV fistula creation. See the chart for further recommendations to follow. Thank you very much for this consultation. Dictated by: JANETH Nash Job#: [id number] EV
[2017-09-01 16:00] VITALS: BP 156/83
[2017-09-01 20:00] VITALS: BP 146/85
[2017-09-01] MEDS: INSULIN DETEMIR 100 UNIT/ML PEN SQ SCH (21:00)
[2017-09-01] MEDS ORDERED: NIFEDIPINE CR 30 MG TAB PO SCH (21:00)
[2017-09-01] MEDS: ATORVASTATIN 20 MG TAB PO SCH (22:00)
[2017-09-02] VITALS: BP 146/79
[2017-09-02] MEDS: ALBUTEROL/IPRATROPIUM 3 ML NEB NEB SCH ×3 (00:30→13:00)
[2017-09-02] MEDS: ACETYLCYSTEINE 20% INHAL SOLN 30 ML VIAL INH SCH ×3 (01:00→13:00)
[2017-09-02 04:00] VITALS: BP 151/83
[2017-09-02] MEDS: INSULIN LISPRO 100 UNIT/1 ML 3ML VIAL SQ SCH ×4 (07:30→12:30)
[2017-09-02 08:00] VITALS: BP 103/60
[2017-09-02] MEDS: DOXYCYCLINE HYCLATE TABLET 100 MG TAB PO SCH (08:57)
[2017-09-02] MEDS: OXCARBAZEPINE 300 MG TAB PO SCH (08:57)
[2017-09-02] MEDS: PREDNISONE 10 MG TAB PO SCH (08:57)
[2017-09-02] MEDS: FUROSEMIDE INJ 10 MG/ML 4 ML VIAL IV SCH (08:57)
[2017-09-02] MEDS: ASPIRIN 81 MG CHEW TAB PO SCH (08:57)
[2017-09-02] MEDS: CALCIUM CARBONATE 500 MG CHEWABLE TABS PO SCH (08:57)
[2017-09-02] MEDS: TERAZOSIN HCL 1 MG CAP PO SCH (08:57)
[2017-09-02] MEDS: CALCITRIOL 0.25 MCG CAP PO SCH (08:57)
[2017-09-02] MEDS: OYST-CAL-D 500MG TABLET PO SCH (08:57)
[2017-09-02] MEDS: NIFEDIPINE CR 30 MG TAB PO SCH (08:57)
[2017-09-02 12:00] VITALS: BP 135/79
--- NOTE | 2017-09-02 12:54 | Discharge Summary ---
FINAL DIAGNOSES 1. End-stage renal disease and fluid overload. 2. Possible pneumonia. 3. Reactive airways. 4. Hypertension. 5. Type-2 diabetes mellitus. 6. Morbid obesity. ADMISSION HISTORY AND HOSPITAL COURSE: Mr. Che is a 67-year-old male who presented to the emergency room with complaint of shortness of breath. The patient was found to be in fluid overload and worsening renal failure with possibility of pneumonia. The patient was treated with IV antibiotics, and hemodialysis was started. Nephrology was consulted. The patient started feeling better. CT of the chest was done. The patient has a history of asbestos exposure, and it did not show any evidence of asbestosis. It showed mosaic pattern consistent with fluid overload or possible pneumonia. The patient will be discharged home. He is going to be on chronic hemodialysis, which has been arranged. He will follow up with Dr. Gilberto Guallpa in 2 to 3 weeks and follow up with me for his respiratory problems. Job#: [id number] cc:GILBERTO GUALLPA MD
--- NOTE | 2017-09-02 13:38 | Operative Report ---
DATE OF PROCEDURE: NO DICTATION, LENGTH 5 SECONDS. Job#: [id number]
[2017-09-02] MEDS ORDERED: HUMALOG100 UNIT/1 SQ (14:24)
--- NOTE | 2017-09-06 09:54 | Diagnostic Imaging Report ---
Date and Time: 08/30/2017 Procedure: Right internal jugular tunneled hemodialysis catheter placement fountain operator: Dr. Mesisna Pre-operative diagnosis: ESRD Post-operative diagnosis: Yesterday Conscious Sedation: Versed 1 mg and Fentanyl 50 mcg. The patient's heart rate and pulse oximetry were continuously monitored by the interventional radiology nurse. Blood pressure was monitored at 5 minute intervals. Additional Medications: None Fluoroscopy time: 2.7 minutes Dose-area Product: 779.6 cGycm2. Contrast used: None Estimated blood loss: Less than 10 cc Blood products administered: None Specimens: None Implants: 16 Lebanese, 19 cm tip-cuff tunneled hemodialysis catheter Condition at completion of procedure: Stable Disposition: Returned to floor unit DISCUSSION: Informed consent for the procedure was obtained from the patient after discussion of risks and benefits. The right neck and upper chest was prepped and draped in the standard sterile fashion after the patient was placed in the supine position on the fluoroscopic table. Preliminary sonographic evaluation confirmed patency of the right internal jugular vein, evidenced by compressibility. 1% lidocaine was administered into the skin and subcutaneous tissues of the right lower neck for local anesthesia. Then, under continuous sonographic guidance, a 21-gauge micropuncture needle was advanced into the right internal jugular vein. A 0.018 inch wire was advanced centrally under fluoroscopic guidance. The needle was then removed and access was secured with a micropuncture sheath. Intravascular length to the upper right atrium was determined using the microwire, which was then removed along with the inner dilator of the micropuncture sheath. A 0.035 inch Amplatz Super Stiff wire was then advanced through the micropuncture sheath into the inferior vena cava under fluoroscopic guidance. Attention was then turned to the right upper chest. A suitable catheter exit site was determined, approximately 2 fingerbreadths inferior to the clavicle. The skin was marked. 1% lidocaine was used to anesthetize a subcutaneous tract extending from the planned catheter exit site to the venotomy at the right lower neck. A stab incision was made on the right upper chest. Subsequently, the catheter was tunneled from the exit site of the right upper chest to the venotomy at the right lower neck. The retention cuff of the catheter was advanced well into the subcutaneous tunnel. The micropuncture sheath was then removed over the wire and the tract was serially dilated. Finally, a 16.5-Lebanese peel-away sheath was advanced over the wire under fluoroscopic guidance. The wire and inner dilator of the sheath were removed and the catheter was advanced through the peel-away sheath, which was then broken and removed. The catheter tip was positioned in the upper right atrium. Each catheter lumen showed good bidirectional flow. Each lumen was then packed with 2000 units of heparin. The catheter was secured at the exit site on the right upper chest with monofilament nylon suture. The venotomy at the right lower neck was closed with tissue adhesive. A sterile dressing was applied. The patient tolerated the procedure well without immediate complication. FINDINGS: Patent right internal jugular vein. IMPRESSION: Successful placement of a tunneled dual-lumen hemodialysis catheter (16-Lebanese, 19-cm tip-cuff length) by a right internal jugular approach. Signed by: Dr. Santiago Messina M.D. on 08/30/2017 2:55 PM
== END 2017-09-02 15:01 | disposition home or self-care (01) | DRG 291 ==
LOC: ER 19:48 → ERHOLD 08-26 00:30 → MED/SURG2 08-26 17:20
PROVIDERS: ADMIT Internal Medicine; ATTEND Internal Medicine
PROC: 0JH63XZ Insertion of Tunneled Vascular Access Device into Chest Subcutaneous Tissue and Fascia, Percutaneous Approach (ICD-10-PCS; principal; 2017-08-30)
PROC: 02H633Z Insertion of Infusion Device into Right Atrium, Percutaneous Approach (ICD-10-PCS; 2017-08-30)
PROC: B5131ZA Fluoroscopy of Right Jugular Veins using Low Osmolar Contrast, Guidance (ICD-10-PCS; 2017-08-30)
PROC: 5A1D70Z Performance of Urinary Filtration, Intermittent, Less than 6 Hours Per Day (ICD-10-PCS; 2017-08-30)
PROC: 5A1D70Z Performance of Urinary Filtration, Intermittent, Less than 6 Hours Per Day (ICD-10-PCS; 2017-08-31)
PROC: 5A1D70Z Performance of Urinary Filtration, Intermittent, Less than 6 Hours Per Day (ICD-10-PCS; 2017-09-01)
DX: I13.2 Hypertensive heart and chronic kidney disease with heart failure and with stage 5 chronic kidney disease, or end stage renal disease (principal); J18.9 Pneumonia, unspecified organism; N17.9 Acute kidney failure, unspecified; J96.10 Chronic respiratory failure, unspecified whether with hypoxia or hypercapnia; I27.20 Pulmonary hypertension, unspecified; E87.2 Acidosis; E11.22 Type 2 diabetes mellitus with diabetic chronic kidney disease; N18.6 End stage renal disease; E87.70 Fluid overload, unspecified; I50.9 Heart failure, unspecified; Z99.2 Dependence on renal dialysis; Z79.4 Long term (current) use of insulin; I25.10 Atherosclerotic heart disease of native coronary artery without angina pectoris; N18.9 Chronic kidney disease, unspecified; I51.7 Cardiomegaly; E83.51 Hypocalcemia; D50.9 Iron deficiency anemia, unspecified; E66.9 Obesity, unspecified; Z68.32 Body mass index [BMI] 32.0-32.9, adult; G47.33 Obstructive sleep apnea (adult) (pediatric); Z77.090 Contact with and (suspected) exposure to asbestos; Z86.79 Personal history of other diseases of the circulatory system; Z86.73 Personal history of transient ischemic attack (TIA), and cerebral infarction without residual deficits
CPT/HCPCS: 36415; 36558; 71046; 71250; 74470; 77001; 80048; 80053; 81050; 82550; 82553; 82575; 82948; 83036; 83880; 83970; 84100; 84156; 84439; 84443; 84484; 85025; 85610; 85730; 86704; 86706; 87340; 90962; 93005; 93306; 94640; 99284; C1750; C1769; J0610; J1644; J1940; J1956; J2001; J2150; J2250; J2920; J7030; J7040; J7070

== ENCOUNTER 2019-12-17 08:17 | Emergency (ER) | payer OTHER ==
[~2019-12-17] VITALS: Ht 180.3 cm; Wt 105.7 kg
[~2019-12-17 08:17] MED LIST changes: +ASPIR 8181 MG PO; +B-125000 MCG PO; +FLAXSEED OIL1000 MG PO; +HUMALOG100 UNIT/1; +HUMALOG100 UNIT/1 SQ; +LEVEMIR100 UNIT/1 SC
--- OUTSIDE RECORDS SUMMARY | 2019-12-17 08:20 | XMS REPORT ---
Author Author [facility] Address Unknown Phone Unavailable Care Team Providers Care Mounter Smoking Pipe Name Role Phone PRAKASH RHODES Unavailable Unavailable Problems This patient has no known problems. Allergies, Adverse Reactions, Alerts This patient has no known allergies or adverse reactions. Medications This patient has no known medications. 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 Mejia Pre-operative diagnosis: ESRD Post-operative diagnosis: Yesterday Conscious Sedation: Versed 1 mg and Fentanyl 50 mcg. The patient's heart rate and pulse oximetry were continuously monitored by the interventional radiology nurse. Blood pressure was monitored at 5 minute intervals. Additional Medications: None Fluoroscopy time: 2.7 minutes Dose-area Product: 779.6 cGycm2. Contrast used: None Estimated blood loss: Less than 10 cc Blood products administered: None Specimens: None Implants: 16 Chadian, 19 cm tip-cuff tunneled hemodialysis catheter Condition at completion of procedure: Stable Disposition: Returned to floor unit DISCUSSION: Informed consent for the procedure was obtained from the patient after discussion of risks and benefits. The right neck and upper chest was prepped and draped in the standard sterile fashion after the patient was placed in the supine position on the fluoroscopic table. Preliminary sonographic evaluation confirmed patency of the right internal jugular vein, evidenced by compressibility. 1% lidocaine was administered into the skin and subcutaneous tissues of the right lower neck for local anesthesia. Then, under continuous sonographic guidance, a 21-gauge micropuncture needle was advanced into the right internal jugular vein. A 0.018 inch wire was advanced centrally under fluoroscopic guidance. The needle was then removed and access was secured with a micropuncture sheath. Intravascular length to the upper right atrium was determined using the microwire, which was then removed along with the inner dilator of the micropuncture sheath. A 0.035 inch Amplatz Super Stiff wire was then advanced through the micropuncture sheath into the inferior vena cava under fluoroscopic guidance. Attention was then turned to the right upper chest. A suitable catheter exit site was determined, approximately 2 fingerbreadths inferior to the clavicle. The skin was marked. 1% lidocaine was used to anesthetize a subcutaneous tract extending from the planned catheter exit site to the venotomy at the right lower neck. A stab incision was made on the right upper chest. Subsequently, the catheter was tunneled from the exit site of the right upper chest to the venotomy at the right lower neck. The retention cuff of the catheter was advanced well into the subcutaneous tunnel. The micropuncture sheath was then removed over the wire and the tract was serially dilated. Finally, a 16.5-Chadian peel-away sheath was advanced over the wire under fluoroscopic guidance. The wire and inner dilator of the sheath were removed and the catheter was advanced through the peel-away sheath, which was then broken and removed. The catheter tip was positioned in the upper right atrium. Each catheter lumen showed good bidirectional flow. Each lumen was then packed with 2000 units of heparin. The catheter was secured at the exit site on the right upper chest with monofilament nylon suture. The venotomy at the right lower neck was closed with tissue adhesive. A sterile dressing was applied. The patient tolerated the procedure well without immediate complication. FINDINGS: Patent right internal jugular vein. IMPRESSION: Successful placement of a tunneled dual-lumen hemodialysis catheter (16-Chadian, 19-cm tip-cuff length) by a right internal jugular approach. Signed by: Dr. Jeanette Mejia M.D. 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 Mejia Pre-operative diagnosis: ESRD Post-operative diagnosis: Yesterday Conscious Sedation: Versed 1 mg and Fentanyl 50 mcg. The patient's heart rate and pulse oximetry were continuously monitored by the interventional radiology nurse. Blood pressure was monitored at 5 minute intervals. Additional Medications: None Fluoroscopy time: 2.7 minutes Dose-area Product: 779.6 cGycm2. Contrast used: None Estimated blood loss: Less than 10 cc Blood products administered: None Specimens: None Implants: 16 Chadian, 19 cm tip- cuff tunneled hemodialysis catheter Condition at completion of procedure: Stable Disposition: Returned to floor unit DISCUSSION: Informed consent for the procedure was obtained from the patient after discussion of risks and benefits. The right neck and upper chest was prepped and draped in the standard sterile fashion after the patient was placed in the supine position on the fluoroscopic table. Preliminary sonographic evaluation confirmed patency of the right internal jugular vein, evidenced by compressibility. 1% lidocaine was administered into the skin and subcutaneous tissues of the right lower neck for local anesthesia. Then, under continuous sonographic guidance, a 21-gauge micropuncture needle was advanced into the right internal jugular vein. A 0.018 inch wire was advanced centrally under fluoroscopic guidance. The needle was then removed and access was secured with a micropuncture sheath. Intravascular length to the upper right atrium was determined using the microwire, which was then removed along with the inner dilator of the micropuncture sheath. A 0.035 inch Amplatz Sup er Stiff wire was then advanced through the micropuncture sheath into the inferior vena cava under fluoroscopic guidance. Attention was then turned to the right upper chest. A suitable catheter exit site was determined, approximately 2 fingerbreadths inferior to the clavicle. The skin was marked. 1% lidocaine was used to anesthetize a subcutaneous tract extending from the planned catheter exit site to the venotomy at the right lower neck. A stab incision was made on the right upper chest. Subsequently, the catheter was tunneled from the exit site of the right upper chest to the venotomy at the right lower neck. The retention cuff of the catheter was advanced well into the subcutaneous tunnel. The micropuncture sheath was then removed over the wire and the tract was serially dilated. Finally, a 16.5-Chadian peel-away sheath was advanced over the wire under fluoroscopic guidance. The wire and inner dilator of the sheath were removed and the catheter was advanced through the peel-away sheath, which was then broken and removed. The catheter tip was positioned in the upper right atrium. Each catheter lumen showed good bidirectional flow. Each lumen was then packed with 2000 units of heparin. The catheter was secured at the exit site on the right upper chest with monofilament nylon suture. The venotomy at the right lower neck was closed with tissue adhesive. A sterile dressing was applied. The patient tolerated the procedure well without immediate complication. FINDINGS: Patent right internal jugular vein. IMPRESSION: Successful placement of a tunneled dual-lumen hemodialysis catheter (16-Chadian, 19-cm tip-cuff length) by a right internal jugular approach. Signed by: Dr. Jeanette Mejia M.D. on 08/30/2017 2:55 PM Dictated By: JEANETTE MEJIA MD 0 Transcribed By: SHANEKA on 09/06/17950 COPY TO: RADHA MCINTYRE CT CHEST WO [place] [address] Patient Name: MARV WOODS MR #: [id number] : 1950 Age/Sex: 67/M Req #: [id number] Adm Physician: PRAKASH RHODES MD Ordered by: PRAKASH RHODES MD Report #: [id number] Location: [facility] Room/Bed: [place] [address] Procedure: [id number] CT/CT CHEST WO Exam Date: Exam Time: REPORT STATUS: Signed PROCEDURE: CT CHEST WITHOUT CONTRAST COMPARISON: Chest x-ray 08/25/17, CT abdomen 12/10/16 INDICATIONS: SOB TECHNIQUE: Axial CT images of the chest were obtained without intravenous contrast. Coronal and sagittal reformations were made available for review. RADIATION DOSE: Total DLP: 629.2 mGy*cm Estimated effective dose: (DLP x 0.014 x size factor) mSv FINDINGS: Lungs: Eventration of the right diaphragm is stable. There is diffuse air trapping. Patchy airspace opacities are present throughout the lungs, particularly the lower lung zones. A groundglass density in the left upper lobe measures 13 mm suggestive of a focus of inflammation or edema. 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 No interstitial thickening is appreciated. The pulmonary arteries and veins are enlarged. Pleura: No pleural effusion or pneumothorax. Heart T Mediastinum: The heart is enlarged with diffuse coronary calcifications. The main pulmonary artery measures 3.8 cm in diameter. The ascending aorta measures 3.3 cm in diameter. There is a small pericardial effusion/pericardial thickening. The esophagus is collapsed. Lymph nodes: No enlarged axillary, supraclavicular, mediastinal, or hilar lymph nodes. Thyroid/basal neck: Unremarkable. Upper abdomen: Visualized portions of the upper abdomen demonstrate a calcified granuloma in the spleen and pancreas. No soft tissue mass or fluid. Musculoskeletal: There are degenerative changes of the spine. Flowing anterior osteophytes are suggestive of DISH. No compression deformities or lytic/blastic lesions. A soft tissue mass superior to the left nipple measures 1.6 x 2.0 cm and could be a sebaceous cyst. CONCLUSION: 1. Severe tracheobroncho malacia. 2. Diffuse airspace opacities suggestive of edema or pneumonia. This is superimposed on diffuse pulmonary hyperinflation consistent with COPD. 3. Cardiomegaly and enlarged pulmonary arteries suggestive of pulmonary artery hypertension. 4. Stable eventration of the right diaphragm. Dictated by: Rubén Castillo M.D. on 08/26/2017 at 16:29 Electronically approved by: Rubén Castillo M.D. on 08/26/2017 at 16:29 Dictated By: RUBÉN CASTILLO MD 1622 Transcribed By: CHARU on 08/26/17 1625 COPY TO: PRAKASH RHODES MD ECHO COMPLETE (ECHOCARDIOGRAM) [place] [address] Patient Name : MARV WOODS MR #: [id number] : 1950 Age/Sex: 67/M Adm Physician : PRAKASH RHODES MD Admit Date : 08/26/17 Location : MED/SURG2 Room/Bed : [facility] REPORT: Cardiology Report DATE OF STUDY: ECHOCARDIOGRAM AGE: [age] years old male. ATTENDING PHYSICIAN: Prakash Rhodes MD M-MODE: Dilated left atrium. Left ventricular hypertrophy. Normal contractility. Sclerosis of mitral valve annulus. Normal aortic valve. No pericardial effusion. SECTOR SCAN: Dilated left atrium. Left ventricular hypertrophy. Normal contractility. Ejection fraction is approximately 50%. Mitral annulus sclerotic. Aortic and tricuspid valves appear to be normal. There is no pericardial effusion. CAROTID DOPPLER STUDY WITH COLOR: 1+ mitral and tricuspid regurgitation. Pulmonary arterial systolic pressure estimated at 28 mmHg. CONCLUSION 1. Mild mitral regurgitation with dilated left atrium with sclerosis of the mitral valve annulus. 2. Mild tricuspid regurgitation without significant pulmonary hypertension. 3. Left ventricular hypertrophy with ejection fraction of approximately 50%. Job#: [id number] [facility] cc: Dr. Prakash Rhodes MD Signature Date Dictated By: JELENA FELTON MD Transcribed By: SMEDS on 08/29/17 <Electronically signed by JELENA FELTON MD><<Signature on File>>09/09/17 1029 COPY TO: CHEST 2 VIEWS [place] [address] Patient Name: MARV WOODS MR #: [id number] : 1950 Age/Sex: 67/M Req #: [id number] Adm Physician: Ordered by: ANDREW GODINEZ MD Report #: [id number] Location: ER Room/Bed: Procedure: [id number] DX/CHEST 2 VIEWS Exam Date: 08/25/17 Exam Time: 2008 REPORT STATUS: Signed EXAMINATION: CHEST 2 VIEWS 08/25/2017 8:10 PM COMPARISON: None INDICATION: Shortness of breath DISCUSSION: LINES: None. LUNGS: The lung volumes are low. There are diffuse perihilar opacities and basilar subsegmental atelectasis. PLEURA: No pleural effusion or pneumothorax. HEART AND MEDIASTINUM: The cardiomediastinal silhouette is enlarged. BONES AND SOFT TISSUES: No acute osseous lesion. The soft tissues are normal. IMPRESSION: Cardiomegaly with perihilar opacities, suspicious for interstitial pulmonary edema. Low lung volumes with basilar atelectasis. Lavinia Davis MD Signed by: Dr. Lavinia Davis M.D. on 08/25/2017 8:56 PM Dictated By: LAVINIA DAVIS MD 55 Transcribed By: SHANEKA on 08/25/172055 COPY TO: ANDREW GODINEZ MD
[2019-12-17] MEDS ORDERED: DIAZEPAM 5 MG TAB PO ONE (08:45)
[2019-12-17] MEDS ORDERED: KETOROLAC TROMETHAMINE 30 MG/ML VIAL IV STA (08:45)
--- NOTE | 2019-12-17 09:48 | Diagnostic Imaging Report ---
History: Left arm and neck pain Comparison studies: None. Technique: Axial images were obtained through the cervical region. Coronal and sagittal images reconstructed from the axial data. Dose modulation, iterative reconstruction, and/or weight based adjustment of the mA/kV was utilized to reduce the radiation dose to as low as reasonably achievable. Intravenous contrast: None Findings: Atlantoaxial articulation: Intact Alignment: Normal lordosis. No subluxations. Cervicomedullary junction: No abnormalities. Patent foramen magnum. Soft tissues: No gross acute abnormalities. Scattered calcified atherosclerosis with calcified plaque in the origin and V1 of the left vertebral artery, intradural V4 segments of both vertebral arteries and within the carotid bulbs. Incidental 8 mm right thyroid lobe nodule for which no further imaging workup is necessary per current JACR guidelines for incidental thyroid nodules. Vertebrae: No fractures, neoplasm or infection. Degenerative changes: C1-C2: Enthesophytes present along the tip of the dens and anterior C1 arch. Patent canal. C2-C3: Patent canal and foramina. C3-C4: Moderate left foraminal stenosis due to uncovertebral arthrosis and severe left foraminal stenosis. Mild right uncovertebral and facet arthrosis without significant foraminal stenosis. Patent canal. C4-C5: Moderate right and mild left foraminal stenosis due to uncovertebral arthrosis and severe right and mild left foraminal facet arthrosis. No significant canal stenosis. C5-C6: Mildly degenerated disc with mild loss of disc height. Mild bilateral facet arthrosis. No significant canal or foraminal stenosis. C6-C7: Mildly degenerated disc. Patent canal and foramina. C7-T1: Mildly degenerated disc. Mild right foraminal stenosis due to uncovertebral arthrosis. Patent canal and left foramen. IMPRESSION: 1. No acute osseous abnormalities. 2. Degenerative changes most notable for moderate foraminal stenosis on the left at C3-C4 and on the right at C4-C5 due to uncovertebral arthrosis and advanced facet arthrosis. No gross significant canal stenosis. Ligament, spinal cord and or vascular abnormalities cannot be excluded on the basis of this examination Signed by: Dr. Santiago Coronel M.D. on 12/17/2019 9:45 AM
[2019-12-17] MEDS ORDERED: ULTRAM50 MG PO (10:13)
[2019-12-17 10:15] VITALS: BP 145/77
== END 2019-12-17 10:28 | disposition home or self-care (01) ==
LOC: ER 08:17
DX: S13.4XXA Sprain of ligaments of cervical spine, initial encounter (principal); S16.1XXA Strain of muscle, fascia and tendon at neck level, initial encounter; M47.812 Spondylosis without myelopathy or radiculopathy, cervical region
CPT/HCPCS: 72125; 99283; J1885

== ENCOUNTER 2019-12-19 10:15 | Emergency (ER) | payer OTHER ==
[~2019-12-19] VITALS: Ht 180.3 cm; Wt 105.7 kg
[~2019-12-19 10:15] MED LIST changes: +ULTRAM50 MG PO
[2019-12-19] MEDS ORDERED: SODIUM CHLORIDE 0.9% 1000ML 1,000 ML IV STA (10:37)
[2019-12-19 10:44] LABS: BASOPHILS % 0.1 % (0.0-1.0); EOSINOPHILS % 0.1 % (0.0-6.0); HEMATOCRIT 31.6 % (38.2-49.6); HEMOGLOBIN 9.8 g/dL (14.0-18.0); LYMPHOCYTES # (AUTO) 1.7 (1.0-3.2); LYMPHOCYTES % 12.1 % (18.0-39.1); MEAN CORPUSCULAR HEMOGLOBIN 29.9 pg (28-32); MEAN CORPUSCULAR VOLUME 96.3 fL (81-99); MONOCYTES # (AUTO) 1.8 (0.2-0.8); MONOCYTES % 12.7 % (4.4-11.3); NEUTROPHILS # (AUTO) 10.7 (2.1-6.9); NEUTROPHILS % 74.4 % (38.7-80.0); PLATELET COUNT 158 x10e3/uL (140-360); RED BLOOD COUNT 3.28 x10e6/uL (4.3-5.7); RED CELL DISTRIBUTION WIDTH 14.7 % (11.7-14.4)
[2019-12-19] MEDS ORDERED: AMIODARONE HCL 150MG 100 ML IV SCH (10:45)
[2019-12-19] MEDS ORDERED: AMIODARONE HCL 360MG 200 ML IV SCH ×2 (10:45→12:00)
[2019-12-19 10:55] LABS: INR 1.24; PROTHROMBIN TIME 16.4 seconds (11.9-14.5)
[2019-12-19 10:56] LABS: PARTIAL THROMBOPLASTIN TIME 33.7 seconds (23.8-35.5)
[2019-12-19] MEDS ORDERED: CEFEPIME 2 GM/NS 0.9% 100 ML 100 ML IV ONE (11:00)
--- NOTE | 2019-12-19 11:04 | Diagnostic Imaging Report ---
Examination: Single AP view of the chest. COMPARISON: 08/25/2017 INDICATION: Status post CODE BLUE DISCUSSION: Endotracheal tube tip projects approximately 2.2 cm above the violetta area Lung volumes are low with vascular crowding in the bases and perihilar regions. No gross consolidation or pneumothorax. Mild enlargement of the cardiomediastinal contour when accounting for portable, AP technique. No acute osseous abnormalities. IMPRESSION: Endotracheal tube tip projects 2.2 cm above the violetta. Low lung volumes with vascular crowding/atelectasis in the bases and perihilar regions. Signed by: Dr. Santiago Messina M.D. on 12/19/2019 11:01 AM
[2019-12-19 11:05] LABS: ALBUMIN/GLOBULIN RATIO 0.8 (0.8-2.0); ANION GAP 28.1 mmol/L (8-16); CALCIUM 8.7 mg/dL (8.4-10.2); CREATININE, SERUM 11.37 mg/dL (0.72-1.25); MAGNESIUM 1.9 MG/DL (1.3-2.1)
[2019-12-19] MEDS ORDERED: AMIODARONE HCL 150 MG in DEXTROSE 5% 100ML 100 ML IV SCH (11:10)
--- NOTE | 2019-12-19 11:14 | NUR ---
pt brother approached window stating "I think my brother's !"; eloise wilson and eloise parnell and dr devries runs outside and evaluates pt; pt does not have a pulse and appears blue and cold; maria l wilson gets [place] and maria l wilson and maria l parnell and dr devries and arturo move pt from vehicle to [facility] arturo begins chest compressions as pt is wheeled inside to room 11; berta solano is called over head while staff works up pt; after pt is revived pt son arrives stating he does not want life saving measures; dr devries orders d/c of bipap and allows son in room; pt has agonal respirations
[2019-12-19] MEDS ORDERED: EPINEPHRINE HCL SYRINGE IV ONE ×2 (11:15→11:30)
[2019-12-19] MEDS ORDERED: ATROPINE SULFATE 1 MG/ML VIAL IV ONE (11:15)
[2019-12-19 11:18] LABS: POTASSIUM 6.1 mmol/L (3.5-5.1)
[2019-12-19] MEDS ORDERED: AMIODARONE HCL 900 MG in DEXTROSE 5 % 500ML BOTTLE 500 ML IV SCH (11:20)
[2019-12-19] MEDS ORDERED: VANCOMYCIN 1GM/NS 250 ML 250 ML IV ONE (11:30)
--- NOTE | 2019-12-19 11:30 | NUR ---
ASSESSMENT: Spiritual distress Pt's brother (Lloyd), and son (Dusty) experiencing anticipatory grief. Pt's family outside ED. Pt's family state he "doesn't want to be on life support." Intervention: Provided calming pastoral presence. Communicated pt's wishes to team. Provided grief support. Outcome: Pt's brother expressed appreciation for support. ALEXANDRA PERAZA [employer] Spiritual Care Department O: [phone]
[2019-12-19 11:37] LABS: CREATINE KINASE MB 8.5 ng/mL (0-5.0)
--- NOTE | 2019-12-19 12:49 | NUR ---
pt belongings (dentures, kulkarni watch, clothing, wallet, shoes) given to son
[2019-12-19 13:06] LABS: ANISOCYTOSIS SLIGHT; BAND NEUTROPHILS % (MANUAL) 4 %; LYMPHOCYTES % (MANUAL) 11 % (19-48); MONOCYTES % (MANUAL) 17 % (3.4-9.0); NEUTROPHILS % (MANUAL) 68 % (40-74); PLATELET ESTIMATE ADEQUATE; PLATELET MORPHOLOGY COMMENT NORMAL; RBC MORPHOLOGY COMMENT NORMAL
--- NOTE | 2019-12-19 14:38 | NUR ---
CALLED TO ED TO ADDRESS SITUATION. CALLED [employer] GAVE ID NUMBER AND LET KNOW THEY WILL NOT FORMS ANALYSIS MANAGER DUE TO NO AUTOPSY FINDINGS. TOLD ME TO CALL FAMILY AND FIND OUT ARRANGEMENTS FOR A HOME OR CALL [facility] DEPARTMENT. CALLED THEM AT [phone] WAS TRANSFERRED TO [facility] WAS TOLD THAT IS AN APPLICATION PROCESS AND THE BUS MAY BE OUT DOING A FORMS ANALYSIS MANAGER, IF FAMILY DOESN'T MAKE ARRANGEMENTS IN TIMELY MANNER TO CALL BACK. CALLED SON AMAURI HE WAS MAKING CALL TO FIND A HOME, LET KNOW [employer] WILL NOT COME GET BODY. SO WOULD HAVE TO MAKE THE ARRANGEMENTS, CALLED AND SPOKE WITH THE BROTHER SABA AND GAVE DIRECT TO [employer]MATION [employer] FOR [facility] [phone]. HE WILL CALL BACK AND LET KNOW WHOM IS COMING TO FORMS ANALYSIS MANAGER HIS BROTHER. ALSO WENT ON TO STATE HE WILL NOT GO INTO HIS BROTHERS ROOM UNTIL HE FINDS OUT IF HE WAS COVID NEGATIVE DO THE THE VIRUS PRECAUTIONS. STATES THE MD IN ED TOLD HIM HE TESTED HIM AND WILL KNOW RESULTS IN APPROX 4 HOURS. LET HIM KNOW THAT THEY WOULD PROBABLY CALL WHEN RESULTS ARE BACK BUT I PERSONALLY AM UNSURE OF HOW LONG IT TAKES TO GET THOSE RESULTS. BOTH BROTHER AND SON STATE IF THEY GET A HOME OR CREMATION SERVICE THEY WILL CALL WITH NAME OF COMPANY.
[2019-12-19] MEDS ORDERED: CALCIUM CHLORIDE 10% 1.36 MEQ/ML 10ML SYR IV ONE (17:56)
[2019-12-19] MEDS ORDERED: SODIUM BICARBONATE 8.4% INJ 50 ML SYR ONE (17:56)
[2019-12-19] MEDS ORDERED: MAGNESIUM SULFATE ONE (17:56)
[2019-12-19] MEDS ORDERED: AMIODARONE HCL INJ 150MG/3ML ONE (17:56)
[2019-12-19] MEDS ORDERED: SODIUM CHLORIDE 0.9% 1000 ML BAG ONE (17:56)
[2019-12-19] MEDS ORDERED: ATROPINE SULFATE 0.1 MG/ML 10ML SYR ONE (17:56)
[2019-12-19] MEDS ORDERED: EPINEPHRINE HCL SYRINGE ONE (17:56)
== END 2019-12-19 11:25 | disposition expired ==
LOC: ER 10:15
DX: I46.9 Cardiac arrest, cause unspecified (principal); I12.0 Hypertensive chronic kidney disease with stage 5 chronic kidney disease or end stage renal disease; E11.22 Type 2 diabetes mellitus with diabetic chronic kidney disease; N18.6 End stage renal disease; Z99.2 Dependence on renal dialysis
CPT/HCPCS: 36415; 71045; 80053; 82550; 82553; 82948; 83735; 84484; 85025; 85610; 85730; 87635; 92950; 93005; 94002; 99284; J0171; J0282; J3475; J7030